=== PATIENT | male | born 1970 | race Caucasian/White ===

== ENCOUNTER 2020-02-23 13:22 | Inpatient (IN) | payer BC ==
--- NOTE | 2020-02-23 14:35 | EDM.PDOC ---
ED HPI GENERAL MEDICAL PROBLEM - General Chief Complaint: Gastrointestinal Problem Stated Complaint: dr gutierrez patient Time Seen by Provider: 02/23/20 14:20 Source of Information: Reports: Patient, Family, Old Records, Provider, RN Notes Reviewed History Limitations: Reports: No Limitations - History of Present Illness INITIAL COMMENTS - FREE TEXT/NARRATIVE: 49-year-old gentleman presents emergency department a complaint of abdominal pain, he has a history of gastric bypass has had difficulty with his bypass for the last several months he has had pain on and off has been to the emergency department several times was evaluated in [place] emergency department on February 08 at that time no acute process was appreciated was evaluated by the bariatric group here on February 16 for further evaluation per recommendations of the bariatric group if pain got so severe recommended reporting to the emergency department for further evaluation. He states his pain is 4-5 out of 10 when he is up moving around however the pain is relieved when he lays down, no nausea no vomiting he still passing gas no difficulty with intake no fevers Mid-Posterior Abdominal Pain Score (Numeric/FACES): 4 - Related Data Allergies Allergy/AdvReac Type Severity Reaction Status Date / Time No Known Allergies Allergy Verified 02/23/20 13:49 Home Meds: Home Meds Propranolol [Inderal LA] 80 mg PO DAILY 02/23/20 [History] amLODIPine Besylate [Norvasc] 10 mg PO DAILY 02/23/20 [History] Past Medical History Cardiovascular History: Reports: Hypertension Gastrointestinal History: Reports: Other (See Below) Other Gastrointestinal History: abd pain since - Past Surgical History GI Surgical History: Reports: Other (See Below) Other GI Surgeries/Procedures: RNY 2006 Social & Family History - Tobacco Use Smoking Status *Q: Never Smoker - Caffeine Use Caffeine Use: Reports: None - Recreational Drug Use Recreational Drug Use: No ED ROS GENERAL - Review of Systems Review Of Systems: See Below Constitutional: Reports: No Symptoms HEENT: Reports: No Symptoms Respiratory: Reports: No Symptoms Cardiovascular: Reports: No Symptoms GI/Abdominal: Reports: Abdominal Pain, Flatus. Denies: Constipation, Diarrhea, Nausea, Vomiting : Reports: No Symptoms ED EXAM, GI/ABD - Physical Exam Exam: See Below Exam Limited By: No Limitations General Appearance: Alert, WD/WN, No Apparent Distress Respiratory/Chest: No Respiratory Distress GI/Abdominal Exam: Normal Bowel Sounds, Soft, Non-Tender, No Distention Course - Vital Signs Last Recorded V/S: Last Vital Signs Temp 96.1 F L 02/23/20 13:46 Pulse 51 L 02/23/20 13:46 Resp 18 02/23/20 13:46 BP 128/79 02/23/20 13:46 Pulse Ox 100 02/23/20 13:46 - Re-Assessments/Exams Free Text/Narrative Re-Assessment/Exam: 02/23/20 14:45 Called and discussed the case with Dr. Gutierrez at 1430 he kindly agreed to come to the emergency department and evaluate the patient for further evaluation Departure - Departure Time of Disposition: 15:33 Disposition: Admitted As Inpatient 66 Condition: Fair Clinical Impression: Abdominal pain - Discharge Information Referrals: Fuad Abrams MD [Primary Care Provider] - Forms: ED Department Discharge Sepsis Event Note (ED) - Evaluation Sepsis Screening Result: No Definite Risk - Focused Exam Vital Signs: Vital Signs Temp Pulse Resp BP Pulse Ox 02/23/20 13:46 96.1 F L 51 L 18 128/79 100 - Assessment/Plan Plan: Assessment Acuity = acute Site and laterality = abdominal pain complicated patient with known history of gastric bypass Etiology = unknown Manifestations = none Location of injury = Home Lab values = none Plan Admission per Dr. Gutierrez This note was dictated using [employer] voice recognition software please call with any questions on syntax or grammar.
[2020-02-23] MEDS ORDERED: HYDROmorphone 1 MG/ML Syringe IV PRN (16:14)
[2020-02-23] MEDS: Pantoprazole 40 MG Vial IV SCH (17:00)
[2020-02-23] MEDS: Dextrose 5%-Lactated Ringers 1,000 ML IV SCH (17:00)
[2020-02-24] MEDS: Dextrose 5%-Lactated Ringers 1,000 ML IV SCH ×2 (03:09→08:30)
[2020-02-24] MEDS ORDERED: Iopamidol 612 MG/ML 150 ML Bottle IV STA (04:25)
--- NOTE | 2020-02-24 05:59 | CRLCT ---
INDICATION: Left renal mass on outside CT TECHNIQUE: Axial images were obtained from the diaphragm to the pubic symphysis. Multiphasic technique was performed including noncontrast, venous and delayed phases. Reformats were obtained in the coronal and sagittal plane. IV Contrast: 150 cc Isovue-300 Oral Contrast: None COMPARISON: None. FINDINGS: Lower chest: Unremarkable. Liver: Unremarkable. Normal in size and attenuation. No masses. Gallbladder and bile ducts: Status post cholecystectomy. Spleen: Unremarkable. Normal in size without mass. Pancreas: Mild pancreatic atrophy. Adrenal glands: Unremarkable. No nodules. Kidneys: No hydronephrosis right kidney. No evidence of nephrolithiasis. Slight contour deformity at the lateral right kidney measures 7 millimeters which is low density measuring 1 Hounsfield unit on precontrast and 0 Hounsfield units postcontrast (2, 60; 5, 60). There is a contour deformity at the upper pole of the left kidney which is low density measuring 13 millimeters. This measures -15 Hounsfield units precontrast and -6 postcontrast and likely represents a low-density cyst. At the mid left kidney there is a slightly more hyperdense lesion which measures 7 millimeters. This measures 34 Hounsfield units precontrast and 40 Hounsfield units postcontrast (5, 61). No hydronephrosis left kidney. No evidence of nephrolithiasis. Delayed phases show no filling defects bilaterally. Vasculature: Minimal atherosclerotic calcification without abdominal aortic aneurysm. GI tract: Status post gastric bypass with gastrojejunostomy. Minimal nonspecific fat stranding adjacent to the excluded portion of the stomach. Epigastric soft tissue density just deep to the peritoneal lining, likely part of a folded hernia mesh with adjacent granulation tissue. No dilated loops of large or small intestine. Pelvis: Bladder minimally distended on neutral images with mildly improved distention delayed images. Bladder wall thickness is probably within normal limits for this degree of distension. Status post left inguinal hernia repair. Prostate unremarkable. Bones: Unremarkable for age. IMPRESSION: 1. Three separate renal lesions identified, 1 on the right and 2 on the left. The right renal lesion measuring 7 millimeters and the upper pole left renal lesion measuring 13 millimeters are consistent with simple cysts. The mid left renal lesion measuring 7 millimeters is hyperdense although without enhancement which would be most consistent with a hyperdense/proteinaceous cyst. 2. Status post gastrojejunostomy without evidence of obstruction. Mild nonspecific fat stranding surrounding the excluded portion of the stomach. 3. Status post epigastric to supraumbilical hernia repair with likely granulation tissue along the mesh. Status post left inguinal hernia repair. Please note that all CT scans at this facility use dose modulation, iterative reconstruction, and/or weight-based dosing when appropriate to reduce radiation dose to as low as reasonably achievable. Dictated by Omari Sommer MD @ Feb 24 2020 5:36AM Signed by Dr. Omari Sommer @ Feb 24 2020 5:57AM
[2020-02-24] MEDS ORDERED: Midazolam 1 MG/ML 2 ML SDV ONE (06:59)
[2020-02-24] MEDS ORDERED: fentaNYL 100 MCG/2 ML SDV ONE (06:59)
[2020-02-24] MEDS ORDERED: Propofol 200 MG/20 ML SDV ONE (06:59)
--- NOTE | 2020-02-24 08:44 | HP ---
HISTORY OF PRESENT ILLNESS: Leeroy is a pleasant 49-year-old male who was admitted yesterday, 02/23/2020, through the emergency room for severe mid abdominal pain. He states the pain is a 1 to 2/10 all the time and an 8 to 10 at certain times. The pain is a constant, dull ache than a stabbing sharp knife pain that will last up to 1 to 4 hours. Onset June 2019. He said that it is gradually worsening, meaning he is having more and more attacks. There are no aggravating or relieving factors and no associated signs and symptoms. He has been to the emergency department several times in , and he was last seen on 02/17/2020 by myself and Ziyad Champagne MD, at [facility]. He was scheduled for exploratory laparotomy, but had a severe abdominal pain attack, which brought him to the emergency room in [facility] stating that this is the worst attack he has had. REVIEW OF SYSTEMS: CONSTITUTIONAL: No fever or chills. SKIN: No rashes, changes in skin lesions. HEENT: No headache, ear pain, loss of hearing. No blurred or double vision. Denies any sore throat or congestion. CARDIOVASCULAR: He has had a history of bradycardia. He had a cardiac clearance by his primary care provider. RESPIRATORY: No cough or shortness of breath. ENDOCRINE: No history of polyuria or polydipsia, skin or hair changes, heat or cold intolerance. HEMATOLOGIC: Negative. Denies any lymph node tenderness or swelling. GENITOURINARY: No change in urination or blood in urine. MUSCULOSKELETAL: No joint pain or swelling. NEUROLOGIC: No history of focal neurological symptoms or memory changes. PSYCHIATRIC: No significant anxiety, depression, or panic attacks. Remainder of review of systems negative for any pertinent positives or negatives. PHQ-9 interpretations score is 7, indicating minor depression. He states because he has been not feeling well for a very long time. CURRENT MEDICATIONS: Include: 1. Norvasc 10 mg once daily. 2. Propranolol LA 80 mg 1 capsule by mouth once a day. 3. Carafate 1 g 4 times before meals and at bedtime. PAST MEDICAL HISTORY: Hypertension, morbid obesity. PAST SURGICAL HISTORY: 1. Deng-en-Y gastric bypass surgery with cholecystectomy, 08/2005, with [facility], [place]. 2. He had an open incisional hernia with mesh, 2016. 3. Left inguinal hernia. 4. Left thumb surgery. He has a steel pin. 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 Children, 1 biological and 2 step-children. He does not smoke or drink alcohol, caffeine, or carbonation. FAMILY HISTORY: Positive for diabetes and heart disease. DIET: Step 4 gastric bypass diet. Protein intake adequate. Fluid intake 64 ounces a day. Exercise is minimal. Vitamins, not taking the recommended post-bariatric surgery vitamins. OBJECTIVE: VITAL SIGNS: Leeroy Choi is a pleasant 49-year-old male, in no acute distress. Height is 5 feet 8 inches. Weight is 276 pounds 9.6 ounces. Preop weight before Deng-en-Y gastric bypass surgery was 413. Total weight loss is 136 pounds. BMI 42.1. TPR is 97.3, 55, 13, blood pressure 119/80. HEENT: Pupils are equal, round, and reactive to light and accommodation. Oral mucosa pink and moist. NECK: Supple. LUNGS: Clear to auscultation in all 4 aponte. No wheezing, rales, or rhonchi. HEART: Regular rate and rhythm without murmur or gallop. ABDOMEN: Midline incision. Abdomen is distorted, larger on the right side than the left. Generalized tenderness. EXTREMITIES: Full range of motion. There is no peripheral edema. SKIN: Without rash. NEUROLOGIC: Cranial nerves 2 through 12 intact. MUSCULOSKELETAL: Deep tendon reflexes are 2+, equal bilaterally. PSYCHIATRIC: Mood and affect appropriate, orientated x3, memory intact. ASSESSMENT: 1. Generalized abdominal pain. 2. Partial small bowel obstruction. 3. Postsurgical malabsorption. 4. History Deng-en-Y gastric bypass surgery. 5. Vitamin B12 deficiency. 6. Vitamin B complex deficiency. 7. Vitamin D deficiency. 8. Zinc deficiency. 9. Essential hypertension. 10.Morbid obesity. 11.Body mass index of 42. PLAN: EGD with IV local sedation this morning. Case to follow, 714, Ziyad Champagne MD. Orders to be written after EGD. Rosie Powers PA-C /[id number]
[2020-02-24] MEDS ORDERED: Propranolol 80 MG Cap.ER PO SCH (09:00)
[2020-02-24] MEDS: amLODIPine 5 MG Tab PO SCH (09:24)
--- NOTE | 2020-02-24 09:26 | PN ---
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 This was associated with quite redness and chronic inflammation again in the left lateral side of the pouch where the fistula was present. The gastrojejunostomy itself was not overly dilated or significantly inflamed. The patient was noted to have a significant hiatal hernia as well and the biopsy was obtained then for CLOtest for H pylori. Overnight, the patient had a CT scan of the abdomen and pelvis with a renal protocol. This showed 2 simple cysts, one on the left, one on the right, and one of the more hyperdense cyst on the left, but these do not have any significant enhancement. It would be consistent with a proteinaceous cyst. Given this, we will follow the cyst with serial ultrasounds, next one probably in 3 months and thereafter 6 months for a couple of years, and if stable, followup will be able to be stopped at that point. The patient's overall presentation was that of a partial intermittent small bowel obstruction as well as additional findings noted on today's endoscopy, plan will be to proceed with exploratory laparotomy, closure of the gastric fistula, repair of the hiatal hernia, release of small bowel obstruction with possible bowel resection, and possible removal of intraperitoneal mesh. This will be done with general anesthetic with a TAP block, ketamine and magnesium infusions. Potential risks of the procedure were reviewed with the patient and he wishes to proceed. Surgery will be scheduled for tomorrow. Ziyad Champagne MD /[id number]
[2020-02-24] MEDS ORDERED: Cyanocobalamin (Vitamin B12) 1,000 MCG/ML SDV IM ONE (10:00)
--- NOTE | 2020-02-24 10:26 | OR ---
DATE OF PROCEDURE: 02/24/2020 SURGEON: Ziyad Champagne MD PREOPERATIVE DIAGNOSIS: Weight regain status post Deng-en-Y gastric bypass. POSTOPERATIVE DIAGNOSES: 1. Weight regain status post Deng-en-Y gastric bypass with fairly large gastric pouch and ulcerated area of left lateral pouch with associated gastrogastric fistula. 2. Moderate (4 cm) sized diaphragmatic hernia. OPERATIVE PROCEDURE: Upper GI endoscopy with biopsies of gastric pouch for CLOtest. ANESTHESIA: IV sedation. INDICATIONS FOR PROCEDURE: This is a 49-year-old male presenting with intermittent episodes of severe abdominal pain and overall, the patient to be highly suspicious for the partial small bowel obstruction, status post previous Deng-en-Y gastric bypass done as an open approach in 2005. Plan is to proceed with upper GI endoscopy for evaluation of that portion of the gastric bypass anatomy. Potential risks including bleeding and perforation were discussed, and the patient wishes to proceed. DETAILS OF PROCEDURE: The patient was taken to the operating room, placed in a left lateral decubitus position. IV sedation was administered, after which the upper GI endoscope was passed orally through the length of the esophagus into the gastric pouch, from there through the gastrojejunostomy roughly 20 cm into the Deng limb. Findings included normal hypopharynx, larynx, upper esophageal sphincter, esophageal body. At the EG junction, no significant inflammation was noted. There was a significant hiatal hernia measuring around 4 cm. The gastric pouch itself was extremely large measuring 11 cm from the esophagogastric junction to the gastrojejunostomy. This was associated with a large reddened area in the lateral aspect of the pouch which on inspection allowed the scope to be passed into the bypassed stomach . This would be contributing to the patient's overall symptoms as well. At this point, biopsies were obtained from the gastric pouch, sent for CLOtest for H pylori. Minimal bleeding from the biopsy sites was seen and the procedure was then concluded. The patient was taken to the recovery room in satisfactory condition. The operative plan will be as outlined in the separate progress note dictated today. Ziyad Champagne MD /[id number]
[2020-02-24] MEDS ORDERED: Sodium Ferric Gluconate Cmplex 250 MG in Sodium Chloride 0.9% 100 ML IV ONE (11:00)
[2020-02-24] MEDS ORDERED: MVI, Adult with Vitamin K 10 ML, Chromium/Copper/Mang/Selen/Zn 1 ML in Dextrose 5%-Lact... IV SCH ×3 (11:00)
[2020-02-24] MEDS: Multivitamins with Iron Tab.Chew PO SCH ×2 (11:28→20:14)
[2020-02-24] MEDS: MVI, Adult with Vitamin K 10 ML, Chromium/Copper/Mang/Selen/Zn 1 ML in Dextrose 5%-Lact... IV SCH ×3 (16:16)
[2020-02-24] MEDS: Pantoprazole 40 MG Vial IV SCH (16:19)
[2020-02-25] MEDS: MVI, Adult with Vitamin K 10 ML, Chromium/Copper/Mang/Selen/Zn 1 ML in Dextrose 5%-Lact... IV SCH ×3 (03:00)
[2020-02-25] MEDS ORDERED: Propranolol 80 MG Cap.ER PO ONE (06:00)
[2020-02-25] MEDS ORDERED: Neostigmine Methylsulfate 1 MG/ML 5 ML Syringe ONE (08:03)
[2020-02-25] MEDS ORDERED: Dexamethasone 4 MG/ML SDV ONE (08:03)
[2020-02-25] MEDS ORDERED: Ondansetron 4 MG/2 ML SDV ONE (08:03)
[2020-02-25] MEDS ORDERED: Propofol 200 MG/20 ML SDV ONE (08:03)
[2020-02-25] MEDS ORDERED: Glycopyrrolate 0.2 MG/ML 5 ML MDV ONE (08:03)
[2020-02-25] MEDS ORDERED: Meropenem 500 MG SDV ONE (08:03)
[2020-02-25] MEDS ORDERED: Bupivacaine 0.5% 50 ML MDV ONE (08:03)
[2020-02-25] MEDS ORDERED: Succinylcholine 200 MG/10 ML MDV ONE (08:03)
[2020-02-25] MEDS ORDERED: Rocuronium 50 MG/5 ML Vial ONE ×2 (08:03→11:25)
[2020-02-25] MEDS ORDERED: Lidocaine 1% with EPINEPHrine 1:100,000 50 ML MDV ONE (08:04)
[2020-02-25] MEDS ORDERED: fentaNYL 100 MCG/2 ML SDV ONE (08:18)
--- NOTE | 2020-02-25 09:15 | PN ---
DATE OF SERVICE: 02/25/2020 SUBJECTIVE: Leeroy is n.p.o. He has his consent signed for his surgery. REVIEW OF SYSTEMS: Negative for any pertinent positives and negatives. OBJECTIVE: GENERAL: Leeroy is a pleasant 49-year-old male VITAL SIGNS: TPR, 02/24/2020 at 2254; 96.9, 47, 16. Blood pressure 123/87. Computers were down, so most recent TPR is recorded elsewhere. HEENT: Negative. NECK: Supple. HEART: Regular rate and rhythm. LUNGS: Clear. ABDOMEN: Negative. EXTREMITIES: Without peripheral edema. ASSESSMENT: Generalized abdominal pain, partial small-bowel obstruction, gastrogastric fistula, paraesophageal diaphragmatic hernia. PLAN: The patient is scheduled for an exploratory laparotomy with closure of gastric fistula, repair of hiatal hernia, release of partial small-bowel obstruction, possible small bowel resection and possible removal of intraperitoneal mesh. Case to follow today. After preoperative evaluation, discussion of possible risks and possible complications, the patient wishes to proceed with surgical procedure. Rosie Powers PA-C /[id number]
[2020-02-25] MEDS ORDERED: fentaNYL 250 MCG/5 ML SDV ONE (09:20)
[2020-02-25] MEDS ORDERED: cefOXitin 2 GM in Sodium Chloride 0.9% 50 ML IV ONE (09:30)
[2020-02-25] MEDS ORDERED: Ketamine 50 MG in Sodium Chloride 0.9% 49.5 ML IV SCH (09:45)
[2020-02-25] MEDS ORDERED: Ketamine 500 MG/5 ML MDV IV SCH (09:45)
[2020-02-25] MEDS ORDERED: Magnesium Sulfate 3.5 GM in Sodium Chloride 0.9% 100 ML IV SCH (09:45)
[2020-02-25] MEDS ORDERED: Lactated Ringers 1,000 ML ONE ×2 (10:27→13:12)
[2020-02-25] MEDS ORDERED: Atropine 0.4 MG/ML SDV ONE (10:30)
[2020-02-25] MEDS ORDERED: Sodium Chloride 0.9% 10 ML ONE (10:31)
[2020-02-25] MEDS ORDERED: ePHEDrine 50 MG/ML SDV ONE (10:31)
[2020-02-25] MEDS ORDERED: Metoclopramide 10 MG/2 ML SDV IVPUSH ONE (13:38)
[2020-02-25] MEDS ORDERED: hydrOXYzine HCL 100 MG/2 ML SDV IM ONE (13:38)
[2020-02-25] MEDS ORDERED: diphenhydrAMINE 50 MG/ML SDV IVPUSH PRN ×2 (13:39→16:00)
[2020-02-25] MEDS ORDERED: HYDROmorphone/Normal Saline 15 MG/30 ML PCA IV PRN (13:39)
[2020-02-25] MEDS ORDERED: Ondansetron 4 MG/2 ML SDV IVPUSH PRN ×2 (13:39→16:00)
[2020-02-25] MEDS ORDERED: Naloxone 0.4 MG/ML SDV IVPUSH PRN (13:39)
[2020-02-25] MEDS ORDERED: diphenhydrAMINE 25 MG Cap PO PRN (13:39)
[2020-02-25] MEDS: amLODIPine 5 MG Tab PO SCH (13:58)
[2020-02-25] MEDS ORDERED: Scopolamine 1.5 MG Transdermal Patch TOP SCH (14:00)
[2020-02-25] MEDS ORDERED: Naloxone 0.4 MG/ML SDV IV PRN (14:00)
[2020-02-25] MEDS ORDERED: Cyclobenzaprine 10 MG Tab PO PRN (15:23)
[2020-02-25] MEDS ORDERED: Labetalol 20 MG/4 ML Syringe IVPUSH PRN (16:00)
[2020-02-25] MEDS ORDERED: MVI, Adult with Vitamin K 10 ML, Thiamine 200 MG, Chromium/Copper/Mang/Selen/Zn 1 ML in... IV SCH ×4 (16:00)
[2020-02-25] MEDS ORDERED: Acetaminophen 500 MG Tab PO PRN (16:00)
[2020-02-25] MEDS ORDERED: Albuterol/Ipratropium 3.0-0.5 MG/3 ML Neb Soln INH PRN (16:00)
[2020-02-25] MEDS ORDERED: Metoclopramide 10 MG/2 ML SDV IVPUSH PRN (16:00)
[2020-02-25] MEDS ORDERED: hydrOXYzine HCL 100 MG/2 ML SDV IM PRN (16:00)
[2020-02-25] MEDS: Pantoprazole 40 MG Vial IV SCH (16:32)
[2020-02-25] MEDS: Acetaminophen 500 MG Tab PO SCH ×2 (16:34→22:59)
[2020-02-25] MEDS: cefOXitin 2 GM in Sodium Chloride 0.9% 50 ML IV SCH ×2 (16:35→22:43)
[2020-02-25] MEDS: Celecoxib 200 MG Cap PO SCH (20:19)
[2020-02-25] MEDS: Heparin Sodium 5,000 Units/ML Vial SUBCUT SCH (20:19)
[2020-02-25] MEDS: Dextrose 5%-Lactated Ringers 1,000 ML IV SCH (22:43)
[2020-02-25] MEDS ORDERED: Furosemide 20 MG/2 ML VIAL IVPUSH ONE (23:03)
[2020-02-26] MEDS: cefOXitin 2 GM in Sodium Chloride 0.9% 50 ML IV SCH (03:29)
[2020-02-26] MEDS ORDERED: Iopamidol 612 MG/ML 50 ML SDV PO STA (03:38)
[2020-02-26] MEDS ORDERED: Sodium Chloride 0.9% 500 ML IV ONE (05:33)
[2020-02-26] MEDS: Dextrose 5%-Lactated Ringers 1,000 ML IV SCH ×2 (05:45→12:13)
[2020-02-26] MEDS ORDERED: Ondansetron 4 MG Tab.DIS PO PRN (07:02)
[2020-02-26] MEDS: Acetaminophen 500 MG Tab PO SCH ×3 (07:23→23:17)
[2020-02-26] MEDS: Heparin Sodium 5,000 Units/ML Vial SUBCUT SCH ×2 (07:23→19:30)
--- NOTE | 2020-02-26 09:09 | PN ---
DATE OF SERVICE: 02/26/2020 SUBJECTIVE: Leeroy is postop day 1. He had 1 bolus of LR and Lasix IV over the night for a low urine output. His total urine output via Drake catheter was 600. NATALIIA drain put out 80 mL of a light red drainage. Oral intake was 660 and IV intake was 2898. He reports his pain is controlled. Has used the Dilaudid [employer]. He currently has no other questions or concerns. Upper GI this morning was normal. Vital signs have been stable. OBJECTIVE: GENERAL: Leeroy Choi is a pleasant 49-year-old male. He is alert and oriented, lying in bed. VITAL SIGNS: TPR at 0721 is 96.8, 75, 16, blood pressure 136/94. HEENT: Negative. NECK: Supple. HEART: Regular rate and rhythm. LUNGS: Clear. ABDOMEN: Dressing dry and intact. NATALIIA drain as above. EXTREMITIES: Without peripheral edema. SCDs are on. ASSESSMENT: Exploratory laparotomy with: 1. Closure and resection at gastric penetration site by bypassed stomach. 2. Small bowel resection. 3. Small bowel strictureplasty. 4. Takedown of gastrostomy. 5. Removal of calcified intraperitoneal nodule. 6. Removal of intraperitoneal mesh. POSTOPERATIVE DIAGNOSES: 1. 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 2. Partial small bowel obstruction. 3. Contracted, possibly contaminated intraperitoneal mesh. 4. Status gastrostomy. 5. Calcified intraperitoneal mass on omentum surface, 9 cm. Date of procedure: 02/25/2020. Surgeon: Ziyad Champagne MD. PLAN: 1. Decrease IV to 100 mL per hour at noon. 2. Call me at noon regarding urine output. 3. Flomax 0.4 mg p.o. b.i.d. Check CMP at noon today. 4. Check CBC, CMP, mag, phos in a.m. 5. Step 2 gastric bypass diet with no cereal. 6. May shower. 7. We will evaluate p.r.n. or in a.m. Rosie Powers PA-C /[id number]
[2020-02-26] MEDS: SCOPOLAMINE PATCH CHECK TOP SCH (09:12)
[2020-02-26] MEDS: Propranolol 80 MG Cap.ER PO SCH (09:17)
[2020-02-26] MEDS: amLODIPine 5 MG Tab PO SCH (09:17)
[2020-02-26] MEDS: Celecoxib 200 MG Cap PO SCH ×2 (09:17→20:48)
--- NOTE | 2020-02-26 09:28 | CR ---
UGI Limited HISTORY: Postbariatric surgery FINDINGS: Patient swallowed water-soluble contrast. Upright views of the abdomen show no evidence of extravasation or obstruction. Surgical drain remains in place. Breathing motion obscures some detail. There is patchy bibasal airspace disease IMPRESSION: Status post bariatric surgery No extravasation or obstruction seen Patchy bibasilar airspace disease right greater than left
[2020-02-26] MEDS ORDERED: Sodium Ferric Gluconate Cmplex 250 MG in Sodium Chloride 0.9% 100 ML IV ONE (11:00)
[2020-02-26] MEDS: HYDROmorphone 2 MG Tab PO PRN (13:00)
[2020-02-26] MEDS ORDERED: Dextrose 5%-Lactated Ringers 1,000 ML IV SCH (14:00)
[2020-02-26] MEDS ORDERED: MVI, Adult with Vitamin K 10 ML, Thiamine 200 MG, Chromium/Copper/Mang/Selen/Zn 1 ML in... IV SCH ×4 (16:00)
[2020-02-26] MEDS: Pantoprazole 40 MG Delayed-Release Granules 1 Packet PO SCH (16:21)
[2020-02-26] MEDS: Tamsulosin 0.4 MG Cap.ER PO SCH (20:48)
[2020-02-27] MEDS: HYDROmorphone 2 MG Tab PO PRN ×2 (07:38→21:58)
[2020-02-27] MEDS: Heparin Sodium 5,000 Units/ML Vial SUBCUT SCH ×2 (07:40→20:43)
[2020-02-27] MEDS: Acetaminophen 500 MG Tab PO SCH ×3 (07:43→23:36)
--- NOTE | 2020-02-27 07:45 | PN ---
DATE OF SERVICE: 02/27/2020 SUBJECTIVE: Leeroy has been afebrile. Oral intake 1050. Urine output after his Drake catheter was discontinued was 950 and he had 370 prior to the Drake being removed. Tolerating a step 2 with no cereal diet well. He states his pain has been controlled with scheduled Tylenol. He has had oral Dilaudid once early yesterday. REVIEW OF SYSTEMS: Negative for any pertinent positives and negatives. OBJECTIVE: GENERAL: Leeroy Choi is a pleasant 49-year-old male. He is alert and orientated. VITAL SIGNS: TPR at 0232: 96.8, 53, 16. Blood pressure 129/68. HEENT: Negative. NECK: Supple. HEART: Regular rate and rhythm. LUNGS: Clear. ABDOMEN: Dressings dry and intact. NATALIIA drain is intact draining a light red drainage of 30 mL in 24 hours. EXTREMITIES: Without peripheral edema. SCDs are on, but patient and Mrs. Choi state that they have not been turned on all night. SKIN: Without rash. LABORATORY DATA: Potassium is 5 and his creatinine is 2. ASSESSMENT: Exploratory laparotomy with; 1. Closure and resection of gastric penetration site by bypassed stomach. 2. Small bowel resection. 3. Small bowel strictureplasty. 4. Takedown of gastrostomy. 5. Removal of calcified intraperitoneal nodule. 6. Removal of intraperitoneal mesh. Date of procedure 02/25/2020. Surgeon: Ziyad Champagne MD. PLAN: 1. Colace 100 mg b.i.d. p.o. 2. Dulcolax tablets 10 mg p.o. b.i.d., scheduled p.o. until patient has a bowel movement. 3. Check CMP, CBC, magnesium and phosphorus in a.m. 4. Make sure that SCDs are turned on. 5. Ambulation encouraged. 6. We will evaluate p.r.n. or in a.m. Rosie Powers PA-C /[id number]
[2020-02-27] MEDS ORDERED: Cyanocobalamin (Vitamin B12) 1,000 MCG/ML SDV IM ONE (09:00)
[2020-02-27] MEDS: Bisacodyl 5 MG Tab PO SCH ×2 (09:20→20:43)
[2020-02-27] MEDS: Docusate Sodium 100 MG Cap PO SCH ×2 (09:20→20:43)
[2020-02-27] MEDS: amLODIPine 5 MG Tab PO SCH (09:21)
[2020-02-27] MEDS: Celecoxib 200 MG Cap PO SCH ×2 (09:21→20:43)
[2020-02-27] MEDS: Propranolol 80 MG Cap.ER PO SCH (09:21)
[2020-02-27] MEDS: SCOPOLAMINE PATCH CHECK TOP SCH (09:22)
[2020-02-27] MEDS: Pantoprazole 40 MG Delayed-Release Granules 1 Packet PO SCH (15:44)
[2020-02-27] MEDS: Tamsulosin 0.4 MG Cap.ER PO SCH (20:43)
[2020-02-28] MEDS: Heparin Sodium 5,000 Units/ML Vial SUBCUT SCH (07:18)
[2020-02-28] MEDS: HYDROmorphone 2 MG Tab PO PRN (07:19)
[2020-02-28] MEDS: Acetaminophen 500 MG Tab PO SCH (07:19)
[2020-02-28] MEDS: amLODIPine 5 MG Tab PO SCH (08:23)
[2020-02-28] MEDS: Bisacodyl 5 MG Tab PO SCH (08:23)
[2020-02-28] MEDS: Docusate Sodium 100 MG Cap PO SCH (08:24)
[2020-02-28] MEDS: Propranolol 80 MG Cap.ER PO SCH (08:24)
[2020-02-28] MEDS: Celecoxib 200 MG Cap PO SCH (08:24)
--- NOTE | 2020-02-29 09:35 | DISCH ---
ADMISSION DIAGNOSES: 1. Partial small bowel obstruction. 2. Postsurgical malabsorption. 3. History of Deng-en-Y gastric bypass surgery. 4. Vitamin B12 deficiency ,. 5. Vitamin B Complex deficiency. 6. Vitamin D deficiency. 7. Zinc deficiency. 8. Essential hypertension. 9. Morbid obesity, body mass index 42. DISCHARGE DIAGNOSES: 1. Exploratory laparotomy with closure and resection of gastric penetration site by bypassed stomach. 2. Small bowel resection. 3. Small bowel strictureplasty. 4. Takedown of gastrostomy. 5. Removal of calcified intraperitoneal nodule. 6. Removal of intraperitoneal mesh. POSTOPERATIVE DIAGNOSES: 1. 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 2. Partial small bowel obstruction. 3. Contracted, possibly contaminated intraperitoneal mesh. 4. Status gastrostomy. 5. Calcified intraperitoneal mass on omental surface (9.0 cm). DATE OF PROCEDURE: 02/25/2020. SURGEON: Ziyad Champagne MD HISTORY: Leeroy Choi is a pleasant 49-year-old male, who has had a 9-month history of abdominal pain. After preoperative evaluation and discussion of possible risks and possible complications, he wished to proceed with surgical procedure. HOSPITAL COURSE: He was admitted through the emergency room on 02/23/2020 for a severe episode of abdominal pain. He was scheduled for surgery later in the month. An endoscopy was done on 02/24/2020 and showed a gastrogastric fistula. On 02/25/2020, Leeroy had surgery. He had no operative complication with exception of heart rate of 20 for a brief period, then has remained in the 50s to 70s. On the postoperative night, he did have low urinary output, was given Lasix and 500 mL bolus. Vital signs remained stable. He was afebrile. Drake was removed. Later in the day on postop day #1, he was voiding without difficulty. Pain was controlled with energy protocol and rare oral Dilaudid. On 02/27/2020, he started bowel stimulation. He is passing gas and pain is controlled. Vital signs are stable and he desires to go home with the understanding he will continue with Dulcolax tabs and take MiraLax tomorrow if needed. PHYSICAL EXAMINATION: GENERAL: Leeroy Choi is a pleasant 49-year-old male. VITAL SIGNS: Height is 5 feet 8.11 inches, weight is 276 pounds. TPR at 0715, 96.2, 58, 16, blood pressure 134/83. HEENT: Negative. NECK: Supple. HEART: Regular rate and rhythm. LUNGS: Clear. ABDOMEN: Aquacel dressing is on. Abdominal binder is on. NATALIIA drain, as noted above, draining only 15 mL of light serosanguineous drainage, will be discontinued prior to discharge. EXTREMITIES: Without peripheral edema. DISPOSITION: Discharged to home. CONDITION: Stable and improving. FOLLOWUP APPOINTMENT: On 03/09/2020 at 10:15 a.m. at [facility], appointment with Rosie Powers PA-C. HOME MEDICATIONS: 1. Celebrex 200 mg oral b.i.d., #28. 2. Colace 100 mg oral b.i.d. 3. Dilaudid 2 to 4 mg every 4 hours p.r.n. pain, #42. 4. Dulcolax 10 mg oral twice daily, #60, stop when starts having bowel movements. 5. Flexeril 10 mg every 8 hours p.r.n. muscle spasms. 6. Tylenol 1000 mg every 8 hours p.r.n. 7. Zofran ODT 4 mg every 4 hours p.r.n. nausea and vomiting. 8. Resume his home medication of Inderal 80 mg oral daily and Norvasc 10 mg oral daily. DIET: Step 2 gastric bypass diet with no cereal until 03/11/2020. ACTIVITY: No lifting over 10 pounds for 6 weeks. Other activity: Walk at least 6 times inside your home daily. Driving: Do not drive for 1 week or while on pain and muscle relaxants. Shower/bathing: May shower. DISCHARGE INSTRUCTIONS: Notify provider if any fever, increased pain, swelling, redness, drainage, nausea, or vomiting. Wound incision care; keep site clean and dry. Take off Aquacel dressing on 03/02/2020. Wear abdominal binder for 6 weeks and then as needed. SPECIAL INSTRUCTION: 1. Use incentive spirometer 10 times every hour while awake for 1 week. 2. If no bowel movement by tomorrow, take MiraLax 7 capfuls in G2, Crystal Light, or Powerade Zero.
--- NOTE | 2020-03-02 11:01 | OR ---
DATE OF PROCEDURE: 02/25/2020 SURGEON: Ziyad Champagne MD PREOPERATIVE DIAGNOSIS: Enlarged gastric pouch with marked inflammation and perforation into previously bypassed stomach (gastrogastric fistula). POSTOPERATIVE DIAGNOSES: 1. Enlarged gastric pouch with marked inflammation and perforation into previously bypassed stomach (gastrogastric fistula). 2. Partial small-bowel obstruction. 3. Contracted possibly contaminated intraperitoneal mesh. 4. Status gastrostomy. 5. Calcified intraperitoneal mass on omental surface (9.0 cm). OPERATIVE PROCEDURES: Exploratory laparotomy with lysis of extensive adhesions and: 1. Closure/resection at the site of gastric perforation into bypassed stomach (33182). 2. Small bowel resection (02625). 3. Small bowel stricturoplasty (17307). 4. Takedown of gastrostomy (32874). 5. Removal of calcified intraperitoneal nodule (82194). 6. Removal of intraperitoneal mesh (22760). ANESTHESIA: General. TUNNEL MUCKER: Rosie Powers PA-C INDICATIONS FOR PROCEDURE: A 49-year-old male, status post previous Deng-en-Y gastric bypass, presenting with problems with ongoing epigastric discomfort and heartburn along with some significant weight regain. Upper endoscopy performed recently showed marked inflammation and ulceration at the left aspect of an otherwise enlarged gastric pouch with perforation, penetration of ulcer into the bypassed stomach. The plan is to proceed with exploratory laparotomy and closure of that area of perforation. Potential risks of procedure including bleeding, infection, leaks from GI tract closures, possible need for additional procedures based on operative findings were all reviewed, and the patient wishes to proceed. DETAILS OF PROCEDURE: The patient was taken to the operating room, place in a supine position. After general endotracheal anesthesia was induced, Drake catheter inserted, and the abdomen prepped and draped. The upper midline incision was made and carried down through the skin, subcutaneous tissue, and through the fascia. Some previously contracted midline scar was excised to facilitate more adequate closure. As one entered peritoneal cavity, general exploration was undertaken. Quite extensive adhesions noted. Initially, the small bowel was evaluated and it was noted that the there was a stricturing at the point where the Deng limb entered the jejunojejunostomy and there was separate stricture partially obstructing that in the vicinity of the remaining jejunojejunostomy between the biliopancreatic limb and what had been the common limb. The patient was noted to have a preexisting gastrostomy tube placed at the original procedure which was done in and around 2005 in [place], and an elongated calcified intraperitoneal mass extending on the underside of the fascia and on the surface of the omentum. This measured 9.0 cm in length upon its excision and this was densely calcified. The patient was also noted to have contracted intraperitoneal mesh which was felt to be high risk for wound infection. Again, given this, mesh was removed at this time. Attention was then taken to the area of the stomach. Some dense adhesions over the gastric pouch and gastrojejunostomy along with adjacent bypassed stomach were noted. These were eventually freed up enough that the plane of dissection between the previously bypassed stomach and the gastric pouch was able to be established. Initially, the previously bypassed stomach was resected adjacent to the area of ulceration up to the level of the diaphragm. This was with SHILA purple and black loads. Dylan tube was then passed per Anesthesia orally and positioned along the lesser curvature side of the gastric pouch and from there into the Deng limb. The stomach was then divided along the edge of that with Dylan tube in position to prevent overtightening of the gastric pouch and gastrojejunostomy. This was accomplished with SHILA black loads and that specimen of stomach then delivered from the field. The remaining staple line over the gastric pouch was then reinforced with running 2-0 Prolene seromuscular stitch and then reinforced with fibrin sealant. Dylan tube was then removed and the repair of the area of ulceration appeared to be otherwise intact. Attention was then taken to the small bowel. The gastrojejunostomy was noted to be banded, but at the previous endoscopy was noted to be of adequate diameter, so this area was not visualized. The small bowel at the end of the Deng limb where it entered the jejunojejunostomy was then divided and small segment of this was resected. The area of stricturing was dealt with by opening the antimesenteric border at the junction of the biliopancreatic and previously noted common limbs, and 2 firings of the Endo-SHIAL 60 mm stapler placed internally and the common opening closed transversely accompanied with stricturoplasty. GI tract continuity was then established with anastomosis between the end of the Deng limb and the area roughly 20 cm distal to the original jejunojejunostomy with a [id number] enteroenterostomy being constructed with 2 internal firings of the SHILA naren, and the common opening was closed transversely as well. Angles anastomosed and mesenteric defect were approximated with some 3-0 Vicryl stitch. During the course of the dissection of the stomach, the previous area of the gastrostomy needed to be taken down. This was freed up from the abdominal wall in the area of gastrostomy including the silastic ring at that level was excised with SHILA black loads and that specimen then delivered from the field. At this point, no further problems were noted. The abdomen was irrigated with antibiotic- containing saline solution. Bilateral transversus abdominis plane blocks were placed. Single Luca-Lopez drain was then taken through a stab wound in the left subcostal area and positioned against the gastric ulceration closure site. The midline fascia was approximated with a #2 Vicryl stitch. Skin and subcutaneous tissue approximated with some 3- 0 Vicryl stitch and the skin with naren. Dressing was applied. The patient was taken to the recovery room in satisfactory condition. For documentation purposes, at the end of the procedure, the patient's Deng limb measured 70 cm, common limb 230 cm, and the biliopancreatic limb 290 cm. Physician anesthesiologist assistant certified, Rosie Powers, played an essential role in assisting in this case, helping to position the patient, retract structures as needed, as well as suturing and cutting sutures when indicated. Her presence improved patient safety and decreased operative time. Ziyad Champagne MD /[id number]
== END 2020-02-28 11:24 | disposition home or self-care (01) | DRG 220 ==
LOC: JP.ED 13:22 → JP.MS 15:43
PROVIDERS: ADMIT Surgery; ATTEND Surgery
PROC: 0DB68ZX Excision of Stomach, Via Natural or Artificial Opening Endoscopic, Diagnostic (ICD-10-PCS; principal; 2020-02-24)
PROC: 0DB80ZZ Excision of Small Intestine, Open Approach (ICD-10-PCS; 2020-02-25)
PROC: 0WPG0JZ Removal of Synthetic Substitute from Peritoneal Cavity, Open Approach (ICD-10-PCS; 2020-02-25)
PROC: 0DBW0ZZ Excision of Peritoneum, Open Approach (ICD-10-PCS; 2020-02-25)
PROC: 0DB60ZZ Excision of Stomach, Open Approach (ICD-10-PCS; 2020-02-25)
DX: K91.850 Pouchitis (principal); K31.4 Gastric diverticulum; K56.600 Partial intestinal obstruction, unspecified as to cause; K44.9 Diaphragmatic hernia without obstruction or gangrene; K31.6 Fistula of stomach and duodenum; Z20.828 Contact with and (suspected) exposure to other viral communicable diseases; K91.2 Postsurgical malabsorption, not elsewhere classified; E55.9 Vitamin D deficiency, unspecified; E66.01 Morbid (severe) obesity due to excess calories; K63.9 Disease of intestine, unspecified; Z68.41 Body mass index [BMI] 40.0-44.9, adult; E53.8 Deficiency of other specified B group vitamins; I10 Essential (primary) hypertension; Z79.899 Other long term (current) drug therapy
CPT/HCPCS: 36415; 74178; 74240; 74240-26; 80048; 80053; 83735; 83880; 84100; 85025; 85027; 86850; 86900; 86901; 87081; 88302; 88305; 88307; 88311; 94762; 99284; 99285-25; A9270-GY; C9113; J0171; J0330; J0461; J0694; J1100; J1170; J1644; J1940; J2185; J2250; J2405; J2704; J2710; J2765; J2795; J2916; J3010; J3410; J3411; J3420; J3475; J3490; J7040; J7050; J7120; J7121; Q9967; U0002

== ENCOUNTER 2022-05-15 10:33 | Day surgery (SDC) | payer BC ==
[2022-05-15] MEDS ORDERED: Cyanocobalamin (Vitamin B12) 1,000 MCG/ML SDV IM ONE (10:50)
[2022-05-15] MEDS ORDERED: Lactated Ringers 1,000 ML IV ONE (11:00)
[2022-05-15] MEDS ORDERED: Glycopyrrolate 0.2 MG/ML 5 ML MDV IVPUSH ONE (11:30)
[2022-05-15] MEDS ORDERED: Glycopyrrolate 0.2 MG/ML 2 ML SDV IVPUSH ONE (11:30)
[2022-05-15] MEDS ORDERED: fentaNYL 50 MCG/ML SDV ONE (11:46)
[2022-05-15] MEDS ORDERED: Propofol 200 MG/20 ML SDV ONE (11:46)
[2022-05-15] MEDS ORDERED: Midazolam 1 MG/ML 2 ML SDV ONE (11:46)
[2022-05-15] MEDS ORDERED: MVI, Adult with Vitamin K 10 ML, Thiamine 200 MG, Zinc/Copper/Manganese/Selenium 1 ML i... IV ONE ×4 (12:00)
== END 2022-05-15 14:05 | disposition home or self-care (01) ==
LOC: JP.SDS 10:33
PROVIDERS: ATTEND Surgery
DX: K29.50 Unspecified chronic gastritis without bleeding (principal); K21.9 Gastro-esophageal reflux disease without esophagitis; I12.9 Hypertensive chronic kidney disease with stage 1 through stage 4 chronic kidney disease, or unspecified chronic kidney disease; N18.30 Chronic kidney disease, stage 3 unspecified; E66.9 Obesity, unspecified; Z68.33 Body mass index [BMI] 33.0-33.9, adult; Z79.899 Other long term (current) drug therapy; Z98.84 Bariatric surgery status
CPT/HCPCS: 43239; 43245; 88305; 88342; J2250; J2704; J3010; J3411; J3420; J3490; J7120

== ENCOUNTER 2022-09-10 05:52 | Day surgery (SDC) | payer BC, OTHER ==
[2022-09-10] MEDS ORDERED: Lactated Ringers 1,000 ML IV ONE (06:00)
[2022-09-10] MEDS ORDERED: Lactated Ringers 1,000 ML IV SCH (06:00)
[2022-09-10] MEDS ORDERED: Cyanocobalamin (Vitamin B12) 1,000 MCG/ML SDV IM ONE (06:30)
[2022-09-10 06:46] LABS: ESTIMATED GFR 42 mL/min (>60)
[2022-09-10] MEDS ORDERED: Midazolam 1 MG/ML 2 ML SDV ONE (07:21)
[2022-09-10] MEDS ORDERED: Propofol 200 MG/20 ML SDV ONE (07:21)
[2022-09-10] MEDS ORDERED: fentaNYL 50 MCG/ML SDV ONE (07:21)
[2022-09-10] MEDS ORDERED: MVI, Adult with Vitamin K 10 ML, Thiamine 200 MG, Zinc/Copper/Manganese/Selenium 1 ML i... IV ONE ×4 (08:30)
== END 2022-09-10 10:50 | disposition home or self-care (01) ==
LOC: JP.SDS 05:52
PROVIDERS: ATTEND Student in an Organized Health Care Education/Training Program
DX: K29.50 Unspecified chronic gastritis without bleeding (principal); K21.00 Gastro-esophageal reflux disease with esophagitis, without bleeding; K44.9 Diaphragmatic hernia without obstruction or gangrene; K94.23 Gastrostomy malfunction; I12.9 Hypertensive chronic kidney disease with stage 1 through stage 4 chronic kidney disease, or unspecified chronic kidney disease; N18.30 Chronic kidney disease, stage 3 unspecified; I25.10 Atherosclerotic heart disease of native coronary artery without angina pectoris; R00.0 Tachycardia, unspecified; K90.9 Intestinal malabsorption, unspecified
CPT/HCPCS: 36415; 43239; 43249; 80053; 83735; 84100; 84425; 85027; 88305; 88342; J2250; J2704; J3010; J3411; J3420; J7120; J3490